=== PATIENT | female | born 1990 | race African-American/Black ===

== ENCOUNTER 2016-06-14 09:39 | Emergency (ER) | payer OTHER ==
[~2016-06-14] VITALS: Ht 157.5 cm; Wt 90.7 kg
[2016-06-14] MEDS ORDERED: NKM (09:44)
[2016-06-14] MEDS ORDERED: IBUPROFEN600 MG ORAL (10:00)
[2016-06-14] MEDS ORDERED: AMOXICILLIN500 MG ORAL ×2 (10:00→10:03)
[2016-06-14 10:02] VITALS: BP 95/64
[2016-06-14 10:16] VITALS: BP 95/64
[2016-06-14] MEDS ORDERED: PROMETHAZINE-C118 M1 ORAL (10:16)
[2016-06-14] MEDS ORDERED: ALBUTEROL SULF8.5 GM INH (10:16)
--- NOTE | 2016-06-14 11:06 | Emergency Room Report ---
History of Present Illness General Chief Complaint: Earache Source: Patient Present Illness HPI 26-year-old female presents ED complaining of left ear pain x2 days. States pain is throbbing, 10 out of 10, nonradiating. Patient denies any fevers or chills. Denies sore throat. Patient does admit to a cough which is dry. Denies smoking. Denies history of asthma.. Denies sick contacts or recent travel. No other aggravating relieving factors. Denies any other associated symptoms Allergies: Coded Allergies: No Known Allergies (Unverified , 06/14/16) Patient History Past Medical History: none Past Surgical History: none Pertinent Family History: none Social History: Denies: alcohol use, drug use, smoking Last Menstrual Period: 3 Weeks ago Now: No Immunizations: UTD Reviewed Nursing Documentation: PMH: Agreed, PSxH: Agreed Nursing Documentation-PMH Past Medical History: No Stated History Review of Systems All Other Systems: negative except mentioned in HPI Physical Exam Vital Signs Date Time Temp Pulse Resp B/P Pulse Ox O2 Delivery O2 Flow Rate FiO2 06/14/16 09:41 98.4 87 16 95/64 96 Room Air Sp02 EP Interpretation: reviewed, normal General Appearance: no apparent distress, alert, GCS 15, non-toxic Head: normocephalic Eyes: bilateral eye PERRL, bilateral eye normal inspection ENT: normal pharynx, no angioedema, normal voice, uvula midline, other - L TM erythematous. poor light reflex Neck: full range of motion, supple/symm/no masses Respiratory: chest non-tender, lungs clear, normal breath sounds, speaking full sentences Cardiovascular #1: normal inspection Gastrointestinal: normal inspection Rectal: deferred Genitourinary: no CVA tenderness Musculoskeletal: normal inspection Neurologic: alert, oriented x3, responsive, motor strength/tone normal, sensory intact, speech normal Psychiatric: normal inspection Skin: normal inspection Lymphatic: no adenopathy Medical Decision Making Diagnostic Impression: Primary Impression: Otitis media Qualified Codes: H66.90 - Otitis media, unspecified, unspecified ear Additional Impression: Bronchitis ER Course Hospital Course 26-year-old F presents to ED with pain L ear. c/o cough Differential diagnoses include: TM perforation, otitis externa, otitis media Clinical course Patient placed on stretcher. After initial history, physical exam reveals a young female in no acute distress. L TM poor light reflex, erythematous. R TM obscured by cerumen. Lungs clear. Remainder of physical exam unremarkable. clinical findings consistent with otitis media, bronchitis Diagnosis - otitis media, bronchitis Stable and discharged to home with Rx albuterol, cough syrup, amoxicillin, motrin. Followup with PMD. Return to ED if symptoms recur or worsen Last Vital Signs Date Time Temp Pulse Resp B/P Pulse Ox O2 Delivery O2 Flow Rate FiO2 06/14/16 10:16 98.4 75 16 95/64 96 Room Air Status: improved Disposition: HOME, SELF-CARE Condition: Stable Scripts Codeine/Promethazine Hcl* (PROMETHAZINE-CODEINE SYRUP*) 118 Ml Syrup 5 ML ORAL Q4H Y for For Cough, #118 ML 0 Refills Prov: EARLINE DURAN M.D. 06/14/16 Albuterol Sulfate* (ALBUTEROL SULFATE MDI*) 8.5 Gm Hfa.aer.ad 2 PUFF INH Q4H Y for cough/wheezing, #1 EA 0 Refills Prov: EARLINE DURAN M.D. 06/14/16 Amoxicillin* (AMOXIL*) 500 Mg Capsule 500 MG ORAL THREE TIMES A DAY for 10 Days, #30 CAP Prov: EARLINE DURAN M.D. 06/14/16 Ibuprofen* (MOTRIN*) 600 Mg Tablet 600 MG ORAL Q8H Y for For Pain, #30 TAB 0 Refills Prov: EARLINE DURAN M.D. 06/14/16 Referrals: [facility] (PCP) Departure Forms: Return to Work Return to Work Date: June 16, 2016 Work Restrictions: None Patient Instructions: Otitis Media, Adult EARLINE DURAN M.D. Jun 14, 2016 11:06
== END 2016-06-14 10:19 | disposition home or self-care (01) ==
LOC: EMR 10:00
DX: H66.92 Otitis media, unspecified, left ear (principal); J40 Bronchitis, not specified as acute or chronic; R05 Cough
CPT/HCPCS: 99284

== ENCOUNTER 2019-05-27 12:24 | Emergency (ER) | payer OTHER ==
[~2019-05-27] VITALS: Ht 157.5 cm; Wt 76.7 kg
[~2019-05-27 12:24] MED LIST: ALBUTEROL SULF8.5 GM INH; AMOXICILLIN500 MG ORAL; IBUPROFEN600 MG ORAL; NKM; PROMETHAZINE-C118 M1 ORAL
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
[2019-05-27 13:13] VITALS: BP 131/88
--- NOTE | 2019-05-27 13:13 | NUR ---
ELOPEMENT: pt walked out of the ED with her two children.
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
== END 2019-05-27 13:13 | disposition home or self-care (01) ==
LOC: EMR 13:00
DX: R53.1 Weakness (principal); R53.83 Other fatigue
CPT/HCPCS: 99281